=== PATIENT | male | born 1995 | race Caucasian/White ===

== ENCOUNTER 2018-07-17 23:32 | Emergency (ER) | payer OTHER ==
[~2018-07-17] VITALS: Ht 167.6 cm; Wt 65.8 kg
[2018-07-17 23:34] VITALS: BP 122/57
== END 2018-07-18 00:24 ==
LOC: ER 23:39
DX: M25.532 Pain in left wrist (principal); M25.531 Pain in right wrist; F20.9 Schizophrenia, unspecified; Z60.2 Problems related to living alone
CPT/HCPCS: 99283; A4606; Z7610